=== PATIENT | female | born 1960 | race Caucasian/White ===

== ENCOUNTER → 2023-04-14 | Outpatient (CLI) | payer BC ==
--- NOTE | 2023-04-17 08:10 | MM ---
Reason for Exam: Screening (asymptomatic). Patient History: Menarche at age 15. First Full-Term at age 18. Postmenopausal. Patient has history of breast feeding. Risk Values: Evie 5 year model risk: 1.0%. NCI Lifetime model risk: 4.4%. Prior Study Comparison: No prior studies available for comparison. Tissue Density: The breast tissue is heterogeneously dense. This may lower the sensitivity of mammography. Findings: Analyzed By CAD. There is no suspicious group of microcalcifications or new suspicious mass. Overall Assessment: Negative, BI-RAD 1 Management: Screening Mammogram of both breasts in [address] [facility] will attempt to contact patient to return for supplemental views and ultrasound if indicated. Patient should continue monthly self-breast exams. A clinical breast exam by your physician is recommended on an annual basis. This exam should not preclude additional follow-up of suspicious palpable abnormalities. Note on Evie scores and lifetime risk: 1. A Evie score greater than 3% is considered moderate risk. If this is the case, consider specialist referral to assess eligibility for a risk reducing agent. 2. If overall lifetime risk for the development of breast cancer is 20% or higher, the patient may qualify for future screening with alternating mammogram and breast MRI. Electronically signed and approved by: Sincere Mares DO
== END | disposition home or self-care (01) ==
LOC: RADMAMWWP 07:21
PROVIDERS: ATTEND Family Medicine
DX: Z12.31 Encounter for screening mammogram for malignant neoplasm of breast (principal); Z78.0 Asymptomatic menopausal state
CPT/HCPCS: 77063; 77067

== ENCOUNTER → 2024-07-17 | Outpatient (CLI) | payer BC ==
--- NOTE | 2024-07-17 08:57 | MM ---
Reason for Exam: Screening (asymptomatic). Last mammogram was performed 1 year(s) and 3 month(s) ago. Patient History: Menarche at age 15. First Full-Term at age 18. Postmenopausal. Patient has history of breast feeding. Risk Values: Evie 5 year model risk: 1.1%. NCI Lifetime model risk: 4.3%. Prior Study Comparison: 04/14/2023 Bilateral MG 3D screening mammo w/cad, [facility]. Tissue Density: The breasts are heterogeneously dense, which may obscure small masses. Findings: Analyzed By CAD. Possible 2 areas of obscured distortion 1:00 left breast anteriorly and at a middle depth. The technologist indicates left breast lump at 12:00 for 2 days reported by the patient. Further evaluation recommended. Otherwise, no significant change. Overall Assessment: Incomplete: need additional imaging evaluation, BI-RAD 0 Management: Special View Mammogram of the left breast. Diagnostic Breast Ultrasound of the left breast. The patient reports a palpable lump. [facility] will attempt to contact patient to return for supplemental views and ultrasound if indicated. [facility], , 07/17/2024 8:53 AM. Electronically signed and approved by: Monet Wagner M.D. Radiologist
== END | disposition home or self-care (01) ==
LOC: RADMAMWWP 06:58
PROVIDERS: ATTEND Family Medicine
DX: Z12.31 Encounter for screening mammogram for malignant neoplasm of breast (principal); R92.333 Mammographic heterogeneous density, bilateral breasts; Z78.0 Asymptomatic menopausal state
CPT/HCPCS: 77063; 77067

== ENCOUNTER → 2024-07-19 | Outpatient (CLI) | payer BC ==
--- NOTE | 2024-07-19 15:25 | MM ---
Reason for Exam: Clinical finding. Last screening mammogram was performed less than 1 month ago. Patient History: Menarche at age 15. First Full-Term at age 18. Postmenopausal. Patient has history of breast feeding. Risk Values: Evie 5 year model risk: 1.1%. NCI Lifetime model risk: 4.3%. Prior Study Comparison: 04/14/2023 Bilateral MG 3D screening mammo w/cad, [facility]. 07/17/2024 Bilateral MG 3D screening mammo w/cad, [facility]. Tissue Density: Left: The breasts are heterogeneously dense, which may obscure small masses. Findings: Analyzed By CAD. The 2 questionable areas of distortion in the upper inner aspect appear to incompletely disperses. However, not clearly seen on the lateral or spot 3-D MLO views. Further ultrasound evaluation recommended. Overall Assessment: Incomplete: need additional imaging evaluation, BI-RAD 0 Management: Diagnostic Breast Ultrasound of the left breast. [facility], , 07/19/2024 3:22 PM. Electronically signed and approved by: Monet Wagner M.D. Radiologist
--- NOTE | 2024-07-19 15:28 | USB ---
Reason for Exam: Clinical finding. Patient History: Menarche at age 15. First Full-Term at age 18. Postmenopausal. Patient has history of breast feeding. Risk Values: Evie 5 year model risk: 1.1%. NCI Lifetime model risk: 4.3%. Technique: Method: Whole Breast Handheld. Doppler: Color. Patient Position: Supine. Prior Study Comparison: 04/14/2023 Bilateral MG 3D screening mammo w/cad, [facility]. 07/17/2024 Bilateral MG 3D screening mammo w/cad, [facility]. Findings: The whole breast of the left breast, the axilla of the left breast and the retroareolar of the left breast were scanned. Very dense heterogeneous tissue is present 12:00 to 1:00. The patient's palpable site is at 1:00, 8 cm from the nipple and seems to correspond to a 5 mm cyst. Otherwise, no solid or cystic lesion or axillary adenopathy. Overall Assessment: Suspicious, BI-RAD 4 Management: Stereotactic Core Biopsy of the left breast. Possible 2 areas of distortion in the upper outer quadrant. Ultrasound shows very dense heterogeneous tissue here. Results were given to the patient verbally at the time of exam. [facility], , 07/19/2024 3:25 PM. Electronically signed and approved by: Monet Wagner M.D. Radiologist
== END | disposition home or self-care (01) ==
LOC: RADMAMWWP 14:44
PROVIDERS: ATTEND Family Medicine
DX: R92.8 Other abnormal and inconclusive findings on diagnostic imaging of breast (principal); R92.333 Mammographic heterogeneous density, bilateral breasts; Z78.0 Asymptomatic menopausal state
CPT/HCPCS: 77061; 77065

== ENCOUNTER → 2024-08-08 | Outpatient (CLI) | payer BC ==
[2024-08-08 07:55] VITALS: BP 120/78; PULSE 56; RESP 16; TEMP 97.8
--- NOTE | 2024-08-08 09:33 | P.PCN ---
Date of Procedure: 08/08/24 Preoperative Diagnosis: Radiographic abnormality left breast Postoperative Diagnosis: Same Procedure(s) Performed: Left breast stereotactic core biopsy Anesthesia: local Surgeon: Nichole Steinberg Pathology: other (Breast tissue/no microcalcifications this was a density) Condition: stable Disposition: same day Indications for Procedure: Stellate lesion left breast upper outer quadrant Operative Findings: Breast tissue Description of Procedure: The patient is a 63-year-old female who on radiograph was noted to have a stellate lesion in the upper outer quadrant of the left breast. This was not seen on ultrasound. Stereotactic core biopsy was recommended. The patient was taken to the stereotactic core biopsy room. She was positioned in the upright chair. A CC from above approach was utilized. The lesion of concern was identified. The lesion was targeted. The breast was prepped using chlorhexidine. 20 cc of 1% lidocaine was used to anesthetize the area of concern. A 9 gauge vacuum-assisted core rotating biopsy needle was driven to the correct coordinates. A prefire film was obtained. The needle was noted to be in the correct location. The needle was fired. A post fire film was obtained. The needle was noted to be in the correct location. 17 core biopsy specimens were obtained. A secure faisal Top-Hat clip was deployed. Post radiograph the clip appeared to be in the correct location, there was some question as to the fact that it might be slightly posterior to the lesion. The specimen was sent to pathology. The patient will follow-up with Dr. Watkins in 1 week. Lesion is felt to be suspicious, if this is benign unless it is a radial scar we may recommend needle localization and excision.
== END ==
LOC: WWCWWP 07:00
PROVIDERS: ATTEND Surgery
DX: R92.8 Other abnormal and inconclusive findings on diagnostic imaging of breast (principal); Z88.6 Allergy status to analgesic agent

== ENCOUNTER → 2024-08-08 | Day surgery (SDC) | payer BC ==
[~2024-08-08] MED LIST: ALPRAZolam 0.25 MG TAB PO PRN; ALPRAZolam 0.5 MG TAB PO PRN
[2024-08-08 07:36] VITALS: PULSE 56
--- NOTE | 2024-08-08 08:07 | P.GSCN ---
History of Present Illness Consult date: 08/08/24 Reason for Consult: Abnormal left breast mammogram Requesting physician: John Leyva History of present illness: Lauren is a 63-year-old female seen in consultation for Dr. Leyva regarding radiographic abnormality in the left breast. She underwent a bilateral screening mammogram on 07 17 24. She was noted to have heterogeneously dense breast with a possible 2 areas of obscured distortion at 1:00 left breast anteriorly and at middle depth. The patient stated that she had felt a lump in her left breast for 2 days. Additional views of the left breast were recommended no lesions of concern were noted in the right breast. The patient on 07 19 24 underwent a left breast diagnostic mammogram. This revealed 2 questionable areas of distortion in the upper inner aspect which appeared to be incompletely dispersed however they were not clearly seen on the lateral view. Ultrasound evaluation was recommended. Ultrasound was performed on the same date very dense heterogeneous tissue was present 12-1 o'clock. The patient's palpable site was noted to be at 1:00 8 cm from the nipple and seem to correspond to a 5 mm cyst. Otherwise no cystic lesions were noted no axillary adenopathy. This was felt to be suspicious BI-RADS 4. Stereotactic core biopsy of the left breast possible 2 areas of distortion in the upper outer quadrant. She has felt some slight increased nodularity in the left breast in the 12 o'clock position for approximately 2 weeks now. Needle biopsy of the right breast approximately 20 years ago which was benign. She has not had any other surgery on her breast. She is not complaining of any recent trauma or infection in the breast. She is not complaining of any nipple discharge or skin changes of her breast. Caffeine: 1 cup/day nicotine: none/never smoker chocolate: none BCP: used for about two years as a teen hormones: none Family History: none for cancer Hormonal History: menarche: 14 , breast fed: yes, age at first : 21 menopause: 48 Surgical history: 2 C-sections Medical History: none Social HIsgtory: nicotine: none alcohol: weekends occasional drugs: none Review of Systems - Constitutional Denies fever, Denies weight loss - EENT Eyes: denies blurred vision Ears: deny: decreased hearing, tinnitus Ears, nose, mouth and throat: Denies dysphagia - Breasts bilateral: as per HPI - Cardiovascular Denies chest pain, Denies shortness of breath - Respiratory Denies cough, Denies 7 - Gastrointestinal Reports as per HPI - Genitourinary Genitourinary: Denies dysuria, Denies hematuria Menstruation: Reports as per HPI - Musculoskeletal Reports as per HPI - Integumentary Denies rash, Denies unusual bruising - Neurological Denies headaches, Denies syncope - Psychiatric Reports as per HPI - Endocrine Reports as per HPI - Hematologic/Lymphatic Denies easy bleeding, Denies easy bruising - Allergic/Immunologic Allergic/Immunologic Comment(s): albuteral inhaler for allergies is needed Reports as per HPI, Reports seasonal allergies Past Medical History Past Medical History: No Reported History History of Any Multi-Drug Resistant Organisms: None Reported Past Surgical History: Section Additional Past Surgical History / Comment(s): x2 Past Anesthesia/Blood Transfusion Reactions: No Reported Reaction Smoking Status: Never smoker Medications and Allergies Home Medications Medication Instructions Recorded Confirmed Type No Known Home Medications 07/24/24 07/24/24 History Allergies Allergy/AdvReac Type Severity Reaction Status Date / Time aspirin Allergy Rash/Hives Verified 07/24/24 14:16 Surgical - Exam Vital Signs Temp Pulse Resp BP 97.5 F L 56 L 16 120/78 08/08/24 07:32 08/08/24 07:32 08/08/24 07:32 08/08/24 07:32 - General no distress - Eyes normal ocular movement - Neck trachea midline - Respiratory normal respiratory effort, clear to auscultation - Cardiovascular Rhythm: regular Heart Sounds: normal: S1, S2 - Abdomen Abdomen: soft, non tender, no guarding, no rigid, no rebound - Integumentary normal turgor - Musculoskeletal normal gait - Psychiatric oriented to time, oriented to person, oriented to place, speech is normal, memory intact Breast Exam: BRA: 38C Inspection: Bilateral grade 2/3 ptosis Palpation: Right breast: Multi positional exam fibrocystic changes, no dominant masses or nodules of concern Right axilla: No adenopathy of concern Left breast: Multi positional exam increased fullness upper outer quadrant no discrete dominant masses or nodules of concern Left axilla: No adenopathy of concern Results Review of as well as 07 19 24, no lesions of concern right breast however reveals some spiculated density in the upper outer quadrant area of the left breast ultrasound performed on 07 19 24 did not reveal any specific lesions of concern a questionable 5 mm cystic lesion was identified Assessment and Plan Assessment: Impression: Radiographic abnormality left breast upper outer quadrant region Dense breast Fibrocystic breast changes Plan: Stereotactic core biopsy left breast Risk and benefits of the procedure discussed with the patient. Risk include but are not limited to bleeding, infection, reaction to the anesthetic. If adequate tissue acquisition is not obtained then further tissue acquisition may be necessary. The patient understands and wishes to proceed. Upon review of the radiographs there were a question of 2 areas of concern which will be further reviewed with radiology prior to the biopsy.
[2024-08-08 09:12] VITALS: BP 119/66; RESP 14; TEMP 98.1
--- NOTE | 2024-08-12 07:26 | MM ---
Date of Procedure: 08/08/24 Preoperative Diagnosis: Radiographic abnormality left breast Postoperative Diagnosis: Same Procedure(s) Performed: Left breast stereotactic core biopsy Anesthesia: local Surgeon: Nichole Steinberg Pathology: other (Breast tissue/no microcalcifications this was a density) Condition: stable Disposition: same day Indications for Procedure: Stellate lesion left breast upper outer quadrant Operative Findings: Breast tissue Description of Procedure: The patient is a 63-year-old female who on radiograph was noted to have a stellate lesion in the upper outer quadrant of the left breast. This was not seen on ultrasound. Stereotactic core biopsy was recommended. The patient was taken to the stereotactic core biopsy room. She was positioned in the upright chair. A CC from above approach was utilized. The lesion of concern was identified. The lesion was targeted. The breast was prepped using chlorhexidine. 20 cc of 1% lidocaine was used to anesthetize the area of concern. A 9 gauge vacuum-assisted core rotating biopsy needle was driven to the correct coordinates. A prefire film was obtained. The needle was noted to be in the correct location. The needle was fired. A post fire film was obtained. The needle was noted to be in the correct location. 17 core biopsy specimens were obtained. A secure faisal Top-Hat clip was deployed. Post radiograph the clip appeared to be in the correct location, there was some question as to the fact that it might be slightly posterior to the lesion. The specimen was sent to pathology. The patient will follow-up with Dr. Watkins in 1 week. Lesion is felt to be suspicious, if this is benign unless it is a radial scar we may recommend needle localization and excision. [facility]OSPITALGhazala
== END ==
LOC: RADMAMWWP 06:58
PROVIDERS: ATTEND Surgery
DX: C50.912 Malignant neoplasm of unspecified site of left female breast (principal); R92.8 Other abnormal and inconclusive findings on diagnostic imaging of breast
CPT/HCPCS: 88305; 88342; 88341; 19081; A4648; J2003

== ENCOUNTER → 2024-08-22 | Outpatient (CLI) | payer BC ==
[2024-08-22 11:18] VITALS: BP 112/62; PULSE 62; RESP 17; TEMP 97.7
--- NOTE | 2024-08-22 11:32 | P.PN ---
Subjective Progress Note Date: 08/22/24 Principal diagnosis: invasive lobular cancer left breast History of Present Illness Consult date: 08-22-24 Reason for Consult: Abnormal left breast mammogram Requesting physician: John Leyva History of present illness: Lauren is a 63-year-old female seen in consultation for Dr. Leyva regarding radiographic abnormality in the left breast. She underwent a bilateral screening mammogram on 07 17 24. She was noted to have heterogeneously dense breast with a possible 2 areas of obscured distortion at 1:00 left breast anteriorly and at middle depth. The patient stated that she had felt a lump in her left breast for 2 days. Additional views of the left breast were recommended no lesions of concern were noted in the right breast. The patient on 07 19 24 underwent a left breast diagnostic mammogram. This revealed 2 questionable areas of distortion in the upper inner aspect which appeared to be incompletely dispersed however they were not clearly seen on the lateral view. Ultrasound evaluation was recommended. Ultrasound was performed on the same date very dense heterogeneous tissue was present 12-1 o'clock. The patient's palpable site was noted to be at 1:00 8 cm from the nipple and seem to correspond to a 5 mm cyst. Otherwise no cystic lesions were noted no axillary adenopathy. This was felt to be suspicious BI-RADS 4. Stereotactic core biopsy of the left breast possible 2 areas of distortion in the upper outer quadrant. She has felt some slight increased nodularity in the left breast in the 12 o'clock position for approximately 2 weeks now. Needle biopsy of the right breast approximately 20 years ago which was benign. She has not had any other surgery on her breast. She is not complaining of any recent trauma or infection in the breast. She is not complaining of any nipple discharge or skin changes of her breast. second area on the left breast compressed out, this was reviewed with Dr. Vaughan on 08-08-24. Pathology left breast invasive lobular cancer, ER+Pr+Her2?, G2 presented at tumor board on 08-20-24: recommend MRI of the breast Caffeine: 1 cup/day nicotine: none/never smoker chocolate: none BCP: used for about two years as a teen hormones: none Family History: none for cancer Hormonal History: menarche: 14 , breast fed: yes, age at first : 21 menopause: 48 Surgical history: 2 C-sections Medical History: none Social HIsgtory: nicotine: none alcohol: weekends occasional drugs: none Review of Systems - Constitutional Denies fever, Denies weight loss - EENT Eyes: denies blurred vision Ears: deny: decreased hearing, tinnitus Ears, nose, mouth and throat: Denies dysphagia - Breasts bilateral: as per HPI - Cardiovascular Denies chest pain, Denies shortness of breath - Respiratory Denies cough - Gastrointestinal Reports as per HPI - Genitourinary Genitourinary: Denies dysuria, Denies hematuria Menstruation: Reports as per HPI - Musculoskeletal Reports as per HPI - Integumentary Denies rash, Denies unusual bruising - Neurological Denies headaches, Denies syncope - Psychiatric Reports as per HPI - Endocrine Reports as per HPI - Hematologic/Lymphatic Denies easy bleeding, Denies easy bruising - Allergic/Immunologic Allergic/Immunologic Comment(s): albuteral inhaler for allergies is needed Reports as per HPI, Reports seasonal allergies Past Medical History Past Medical History: No Reported History History of Any Multi-Drug Resistant Organisms: None Reported Past Surgical History: Section Additional Past Surgical History / Comment(s): x2 Past Anesthesia/Blood Transfusion Reactions: No Reported Reaction Smoking Status: Never smoker Medications and Allergies Home Medications Medication Instructions Recorded Confirmed Type No Known Home Medications 07/24/24 07/24/24 History Allergies Allergy/AdvReac Type Severity Reaction Status Date / Time aspirin Allergy Rash/Hives Verified 07/24/24 14:16 Objective - Vital Signs Vital signs: Vital Signs Temp 97.7 F 08/22/24 11:16 Pulse 62 08/22/24 11:16 Resp 17 08/22/24 11:16 BP 112/62 08/22/24 11:16 Pulse Ox 96 08/22/24 11:16 FiO2 Intake & Output 08/21/24 08/22/24 08/22/24 18:59 06:59 18:59 Weight 63.503 kg - Constitutional General appearance: Present: cooperative - EENT Eyes: Present: EOMI ENT: Present: hearing grossly normal - Neck Neck: Present: normal ROM - Respiratory Respiratory: bilateral: CTA - Cardiovascular Heart sounds: normal: S1, S2 - Integumentary Integumentary: Present: normal turgor - Musculoskeletal Musculoskeletal: Present: gait normal - Psychiatric Psychiatric: Present: A&O x's 3, appropriate affect, intact judgment & insight - Additional findings Additional findings: Breast Exam: BRA: 38C Inspection: Bilateral grade 2/3 ptosis Palpation: Right breast: Multi positional exam fibrocystic changes, no dominant masses or nodules of concern Right axilla: No adenopathy of concern Left breast: Multi positional exam increased fullness upper outer quadrant no discrete dominant masses or nodules of concern; post stero biopsy changes no hematoma or infection Left axilla: No adenopathy of concern Assessment and Plan Assessment: Impression: Radiographic abnormality left breast upper outer quadrant region/ biopsy proven invasive lobular cancer Dense breast Fibrocystic breast changes presented at tumor board on 08-20-24 Plan: MRI of breast appointment with radiation oncology await HEr2 status probable left breast needle localization lumpectomy, possible oncoplastic tissue transfer, left sentinel node injection, left sentinel node biopsy, possible left axillary node dissection CC; Dr. Leyva
== END ==
LOC: WWCWWP 10:59
PROVIDERS: ATTEND Surgery
DX: C50.412 Malignant neoplasm of upper-outer quadrant of left female breast (principal); N60.19 Diffuse cystic mastopathy of unspecified breast; R92.30 Dense breasts, unspecified; Z88.6 Allergy status to analgesic agent

== ENCOUNTER → 2024-09-11 | Outpatient (CLI) | payer BC ==
--- NOTE | 2024-09-20 08:21 | MR ---
EXAM DATE: 09/11/2024 EXAM DESCRIPTION: MRI-Breast Bilat (W/WO Contrast) INDICATION: Recent diagnosis of left breast invasive lobular carcinoma and LCIS by stereotactic biopsy. Pretreatment staging. COMPARISON: PRIOR MRIs: None available. Correlation to mammograms: 04/14/2023, 07/17/2024, 07/19/2024. Correlation to ultrasound: 07/19/2024. CONTRAST: 5.5 cc Gadavist IV gadolinium contrast TECHNIQUE: Study was performed at [facility] with Radiologic interpretation by [facility] Multiplanar multisequence MR imaging of both breasts was performed with a dedicated breast coil. Images were obtained before and after administration of IV gadolinium, using the standard breast mass protocol. Computer aided detection was utilized for interpretation. FINDINGS: LMP: Postmenopausal General breast composition: The breast is heterogeneously dense Background parenchymal enhancement: Mild RIGHT BREAST: The T2 weighted series shows no areas of abnormal signal intensity. Review of the dynamic series shows no early or abnormal enhancement. LEFT BREAST: There are multiple masses in the upper-outer left breast the largest of which measures 1.5 x 0.9 cm at 1 o'clock, 6 cm from the nipple. Smaller adjacent masses extend to 12 o'clock at site of biopsy site marker. This area estimates 2.6 x 1.9 cm. There is diffuse non mass enhancement that extends ventrally in the superior left breast for total area of 6.3 x 4.2 x 2.6 cm. Abnormal enhancement extends within 1.5 cm of the nipple without discrete extension into the nipple. LYMPH NODES: There are at least 5 asymmetrically prominent left axillary lymph nodes. No evidence of internal mammary adenopathy. IMPRESSION: RIGHT BREAST: No MR evidence of malignancy. LEFT BREAST: Known malignancy in the left breast at 12 o'clock with multiple additional masses and non mass enhancement in the superior breast for total area of suspected involvement estimating 6.3 x 4.2 x 2.6 cm within 1.5 cm of the nipple. If pathologic confirmation is clinically necessitated, stereotactic biopsy more anteriorly could be attempted versus MRI guided biopsy. Multiple prominent left axillary lymph nodes. If clinically necessitated, targeted ultrasound with possible biopsy could be performed. OVERALL ASSESSMENT -- BI-RADS 6: Known Biopsy proven Malignancy MTDD
== END | disposition home or self-care (01) ==
LOC: RADMRIMAIN 06:43
PROVIDERS: ATTEND Surgery
DX: C50.812 Malignant neoplasm of overlapping sites of left female breast (principal)
CPT/HCPCS: 77049; A9585

== ENCOUNTER → 2024-09-26 | Outpatient (CLI) | payer BC, MEDICARE ==
[2024-09-26 15:03] VITALS: BP 112/80; PULSE 77; RESP 17; TEMP 97.6
--- NOTE | 2024-09-26 15:51 | P.PN ---
Subjective Progress Note Date: 09/26/24 : Subjective Progress Note Date: 08/22/24 Principal diagnosis: invasive lobular cancer left breast History of Present Illness Consult date: 08-22-24 Reason for Consult: Abnormal left breast mammogram Requesting physician: John Leyva History of present illness: Lauren is a 63-year-old female seen in consultation for Dr. Leyva regarding radiographic abnormality in the left breast. She underwent a bilateral screening mammogram on 07 17 24. She was noted to have heterogeneously dense breast with a possible 2 areas of obscured distortion at 1:00 left breast anteriorly and at middle depth. The patient stated that she had felt a lump in her left breast for 2 days. Additional views of the left breast were recommended no lesions of concern were noted in the right breast. The patient on 07 19 24 underwent a left breast diagnostic mammogram. This revealed 2 questionable areas of distortion in the upper inner aspect which appeared to be incompletely dispersed however they were not clearly seen on the lateral view. Ultrasound evaluation was recommended. Ultrasound was performed on the same date very dense heterogeneous tissue was present 12-1 o'clock. The patient's palpable site was noted to be at 1:00 8 cm from the nipple and seem to correspond to a 5 mm cyst. Otherwise no cystic lesions were noted no axillary adenopathy. This was felt to be suspicious BI-RADS 4. Stereotactic core biopsy of the left breast possible 2 areas of distortion in the upper outer quadrant. She has felt some slight increased nodularity in the left breast in the 12 o'clock position for approximately 2 weeks now. Needle biopsy of the right breast approximately 20 years ago which was benign. She has not had any other surgery on her breast. She is not complaining of any recent trauma or infection in the breast. She is not complaining of any nipple discharge or skin changes of her breast. second area on the left breast compressed out, this was reviewed with Dr. Vaughan on 08-08-24. Pathology left breast invasive lobular cancer, ER+Pr+Her2-, G2 presented at tumor board on 08-20-24: recommend MRI of the breast 09-26-24 MRI 09-11-24 of breast: area measures 6.5 by 4.2 cm in size left breast, right breast no lesions appointment with radiation oncology/ done on 09-19-24 Her2 - note radiation oncology 09-19-[address] Rodrigez Caffeine: 1 cup/day nicotine: none/never smoker chocolate: none BCP: used for about two years as a teen hormones: none Family History: none for cancer Hormonal History: menarche: 14 , breast fed: yes, age at first : 21 menopause: 48 Surgical history: 2 C-sections Medical History: none Social HIsgtory: nicotine: none alcohol: weekends occasional drugs: none Review of Systems - Constitutional Denies fever, Denies weight loss - EENT Eyes: denies blurred vision Ears: deny: decreased hearing, tinnitus Ears, nose, mouth and throat: Denies dysphagia - Breasts bilateral: as per HPI - Cardiovascular Denies chest pain, Denies shortness of breath - Respiratory Denies cough - Gastrointestinal Reports as per HPI - Genitourinary Genitourinary: Denies dysuria, Denies hematuria Menstruation: Reports as per HPI - Musculoskeletal Reports as per HPI - Integumentary Denies rash, Denies unusual bruising - Neurological Denies headaches, Denies syncope - Psychiatric Reports as per HPI - Endocrine Reports as per HPI - Hematologic/Lymphatic Denies easy bleeding, Denies easy bruising - Allergic/Immunologic Allergic/Immunologic Comment(s): albuteral inhaler for allergies is needed Reports as per HPI, Reports seasonal allergies Past Medical History Past Medical History: No Reported History History of Any Multi-Drug Resistant Organisms: None Reported Past Surgical History: Section Additional Past Surgical History / Comment(s): x2 Past Anesthesia/Blood Transfusion Reactions: No Reported Reaction Smoking Status: Never smoker Medications and Allergies Home Medications Medication Instructions Recorded Confirmed Type No Known Home Medications 07/24/24 07/24/24 History Allergies Allergy/AdvReac Type Severity Reaction Status Date / Time aspirin Allergy Rash/Hives Verified 07/24/24 14:16 Objective - Vital Signs Vital signs: Vital Signs Temp 97.6 F 09/26/24 15:00 Pulse 77 09/26/24 15:00 Resp 17 09/26/24 15:00 BP 112/80 09/26/24 15:00 Pulse Ox 93 L 09/26/24 15:00 FiO2 Intake & Output 09/25/24 09/26/24 09/26/24 18:59 06:59 18:59 Weight 62.596 kg - Constitutional General appearance: Present: cooperative - EENT Eyes: Present: EOMI ENT: Present: hearing grossly normal - Neck Neck: Present: normal ROM - Respiratory Respiratory: bilateral: CTA - Cardiovascular Rhythm: regular Heart sounds: normal: S1, S2 - Integumentary Integumentary: Present: normal turgor - Musculoskeletal Musculoskeletal: Present: gait normal - Psychiatric Psychiatric: Present: A&O x's 3, appropriate affect, intact judgment & insight - Additional findings Additional findings: Breast Exam: BRA: 38C Inspection: Bilateral grade 2/3 ptosis Palpation: Right breast: Multi positional exam fibrocystic changes, no dominant masses or nodules of concern Right axilla: No adenopathy of concern Left breast: Multi positional exam increased fullness upper outer quadrant no discrete dominant masses or nodules of concern; post stero biopsy changes no hematoma or infection; area of fullness in the upper outer quadrant is approximately 6 x 4 cm in size and will correspond to what is seen on the MRI of the left breast Left axilla: No adenopathy of concern Assessment and Plan Assessment: Impression: Radiographic abnormality left breast upper outer quadrant region/ biopsy proven invasive lobular cancer Dense breast Fibrocystic breast changes presented at tumor board on 08-20-24 MRI of breast: area measures 6.5 by 4.2 cm in size left breast, right breast no lesions appointment with radiation oncology/ done on 09-19-24 Her2(-) Plan: Appointment medical oncology tomorrow/probable neoadjuvant therapy Patient will call us tomorrow to let us know if she would like to proceed with surgery or have neoadjuvant therapy to try to shrink the tumor if she decides for surgery we would most likely recommend a mastectomy if she is going top have neoadjuvant treatment I will see her again in 2 months time CC; Dr. Leyva
== END ==
LOC: WWCWWP 14:33
PROVIDERS: ATTEND Surgery
DX: N60.11 Diffuse cystic mastopathy of right breast (principal); C50.412 Malignant neoplasm of upper-outer quadrant of left female breast; Z88.6 Allergy status to analgesic agent

== ENCOUNTER → 2024-10-01 | Outpatient (CLI) | payer MEDICARE ==
--- NOTE | 2024-10-01 11:58 | USB ---
Patient History: Menarche at age 15. First Full-Term at age 18. Postmenopausal. Patient has history of breast feeding. Breast cancer, left, age 63. 08/08/2024, Malignant MG stereo VAD BX LT on the left side. Technique: Method: Targeted. Prior Study Comparison: 04/14/2023 Bilateral MG 3D screening mammo w/cad, [facility]. 07/17/2024 Bilateral MG 3D screening mammo w/cad, [facility]. 07/19/2024 Left MG 3D work up w/cad LT, [facility] WITH [facility]. Findings: The axilla of the left breast was scanned. Technique utilized:US breast axilla LT Image; Ultrasound imaging of: Left axilla. No evidence for organizing fluid collection or mass. Normal lymph nodes in the axilla. Overall Assessment: Benign, BI-RAD 2 Management: Screening Mammogram of both breasts in 1 year. A clinical breast exam by your physician is recommended on an annual basis and results should be correlated with mammographic findings. This exam should not preclude additional follow-up of suspicious palpable abnormalities. Results were given to the patient verbally at the time of exam. [facility], , 10/01/2024 11:55 AM. Electronically signed and approved by: Sincere Mares DO
== END | disposition home or self-care (01) ==
LOC: RADUSWWP 10:46
PROVIDERS: ATTEND Internal Medicine Hematology & Oncology
DX: R59.0 Localized enlarged lymph nodes (principal); Z78.0 Asymptomatic menopausal state; Z85.3 Personal history of malignant neoplasm of breast

== ENCOUNTER → 2024-10-03 | Day surgery (SDC) | payer MEDICARE ==
--- NOTE | 2024-10-05 17:30 | PE ---
EXAMINATION TYPE: PET CT fusion skull to thigh DATE OF EXAM: 10/03/2024 CLINICAL INDICATION:Female, 64 years old with history of R59.0 LOCALIZED ENLARGED LYMPH NODES; histor y of left breast cancer TECHNIQUE: Following the intravenous administration of 12.14 mCi of F-18 FDG, whole body images are performed from the skull base to the midthigh. Images are reviewed on the computer in the coronal, axial, and sagittal planes. Reconstructed rotating images are created on independent workstation and reviewed on the computer. A non-contrast CT is performed in conjunction with the PET scan. Glucose level 95 mg/dL CT DLP: 573 mGycm, Automated exposure control for dose reduction was used. COMPARISON: CT None, PET/CT None, MRI: 09/11/2024, ultrasound: 10/01/2024, 07/19/2024 FINDINGS: Mediastinal SUV mean is 2.1. Hepatic parenchyma SUV mean is 2.4. SKULL BASE AND NECK: No suspicious radiotracer activity. CHEST, MEDIASTINUM, AND HILAR REGION: Subtle focal FDG activity within the left breast corresponding to known breast cancer. Demonstrates a maximum SUV of 2.8. No suspicious adenopathy. ABDOMEN AND PELVIS: No suspicious radiotracer activity. MUSCULOSKELETAL STRUCTURES: No suspicious radiotracer activity. OTHER CT: Bilateral lower lobe linear scarring and/or atelectasis. Mild atherosclerotic calcification of the aorta. Distal colonic diverticulosis without evidence for acute diverticulitis. IMPRESSION: Subtle focal radiotracer activity just above background within the left breast corresponding to known breast cancer. No suspicious radiotracer activity to suggest metastasis. [facility], , 10/05/2024 5:28 PM
== END ==
LOC: RADPROMAIN 17:10
PROVIDERS: ATTEND Internal Medicine Hematology & Oncology
DX: Z53.8 Procedure and treatment not carried out for other reasons (principal); R59.0 Localized enlarged lymph nodes; Z85.3 Personal history of malignant neoplasm of breast
CPT/HCPCS: 78815; A9552

== ENCOUNTER → 2024-10-11 | Day surgery (SDC) | payer BC, MEDICARE ==
[~2024-10-11] MED LIST changes: -ALPRAZolam 0.25 MG TAB PO PRN; -ALPRAZolam 0.5 MG TAB PO PRN; +LACTATED RINGERS 1,000 ML IV SCH; +LIDOCAINE 2% (PF) 20 MG/ML 5 ML VIAL ONE; +PROPOFOL 10 MG/ML 20 ML VIAL IV ONE
[2024-10-11] MEDS: IV FLUID CONTINUATION 1,000 ML IV ONE (13:32)
[2024-10-11 13:38] VITALS: TEMP 97.2
--- NOTE | 2024-10-11 15:01 | P.PCN ---
Date of Procedure: 10/11/24 Procedure(s) Performed: BRIEF HISTORY: Patient is a 64-year-old, pleasant, white female scheduled for an upper endoscopy as a part of evaluation of dysphagia to solids for the last 2 weeks duration. She has prior history of GERD and esophageal stricture for which she underwent EGD with dilation in 2018.. PROCEDURE PERFORMED: Esophagogastroduodenoscopy with biopsy and dilation. PREOPERATIVE DIAGNOSIS: Intermittent dysphagia to solids. IV sedation per anesthesia. PROCEDURE: After informed consent was obtained, the patient was brought into the endoscopy unit. IV sedation was administered by Anesthesia under continuous monitoring. Initially the Olympus GIF-140 video endoscope was inserted into the mouth. Esophagus intubated without any difficulty. It was gradually advanced into the stomach and duodenum and carefully examined. The bulb and the second part of the duodenum appeared normal. The scope at this time was withdrawn to the stomach, adequately insufflated with air, and upon careful examination, mucosa of the antrum, body, cardia and the fundus appeared normal. The scope was then withdrawn into the esophagus. Small hiatal hernia noted the GE junction was located at 39 cm from the incisors. The distal esophagus stricture identified and this was dilated using 12 and 13.5 mm TTS balloon for 30 seconds. Some brisk oozing was identified and hence further dilation was not performed. The oozing subsided. The mucosa of the mid and distal esophagus had thickened esophageal folds with superficial mucosal rings suspicious for eosinophilic esophagitis and multiple biopsies were done. There were no erosions or ulcerations seen and the patient tolerated the procedure well. IMPRESSION: 1. Distal esophageal stricture status post balloon dilation using 12 and 13.5 mm TTS balloon. 2. Thickened distal and mid esophageal folds with mucosal rings suspicious for eosinophilic esophagitis status post multiple biopsies. 3. Small hiatal hernia RECOMMENDATIONS: The findings of this examination were discussed with the patient as well as her family. She was advised to be on clear liquid diet. Start on omeprazole 20 mg daily and follow antireflux measures. Follow-up in the office in 4 weeks..
[2024-10-11 15:27] VITALS: RESP 16
[2024-10-11 15:31] VITALS: BP 96/58; PULSE 61
== END ==
LOC: ORWHC2ENDO 13:04
PROVIDERS: ATTEND Internal Medicine Gastroenterology
DX: K22.2 Esophageal obstruction (principal); K20.90 Esophagitis, unspecified without bleeding; D72.10 Eosinophilia, unspecified; K44.9 Diaphragmatic hernia without obstruction or gangrene; Z79.899 Other long term (current) drug therapy; Z87.19 Personal history of other diseases of the digestive system; Z85.3 Personal history of malignant neoplasm of breast; Z88.6 Allergy status to analgesic agent
CPT/HCPCS: 88305; 88312; 43239; 43249; J2704; J2003; C1726

== ENCOUNTER → 2024-12-05 | Outpatient (CLI) | payer MEDICARE ==
[2024-12-05 09:59] VITALS: BP 112/79; PULSE 66; RESP 16; TEMP 98.3
--- NOTE | 2024-12-05 10:02 | P.PN ---
Subjective Progress Note Date: 12/05/24 Principal diagnosis: left breast invasive lobular cancer : Subjective Progress Note Date: 12-05-24 Principal diagnosis: invasive lobular cancer left breast History of Present Illness Consult date: 08-22-24 Reason for Consult: Abnormal left breast mammogram Requesting physician: John Leyva History of present illness: Lauren is a 63-year-old female seen in consultation for Dr. Leyva regarding radiographic abnormality in the left breast. She underwent a bilateral screening mammogram on 07 17 24. She was noted to have heterogeneously dense breast with a possible 2 areas of obscured distortion at 1:00 left breast anteriorly and at middle depth. The patient stated that she had felt a lump in her left breast for 2 days. Additional views of the left breast were recommended no lesions of concern were noted in the right breast. The patient on 07 19 24 underwent a left breast diagnostic mammogram. This revealed 2 questionable areas of distortion in the upper inner aspect which appeared to be incompletely dispersed however they were not clearly seen on the lateral view. Ultrasound evaluation was recommended. Ultrasound was performed on the same date very dense heterogeneous tissue was present 12-1 o'clock. The patient's palpable site was noted to be at 1:00 8 cm from the nipple and seem to correspond to a 5 mm cyst. Otherwise no cystic lesions were noted no axillary adenopathy. This was felt to be suspicious BI-RADS 4. Stereotactic core biopsy of the left breast possible 2 areas of distortion in the upper outer quadrant. She has felt some slight increased nodularity in the left breast in the 12 o'clock position for approximately 2 weeks now. Needle biopsy of the right breast approximately 20 years ago which was benign. She has not had any other surgery on her breast. She is not complaining of any recent trauma or infection in the breast. She is not complaining of any nipple discharge or skin changes of her breast. second area on the left breast compressed out, this was reviewed with Dr. Vaughan on 08-08-24. Pathology left breast invasive lobular cancer, ER+Pr+Her2-, G2 presented at tumor board on 08-20-24: recommend MRI of the breast 09-26-24 MRI 09-11-24 of breast: area measures 6.5 by 4.2 cm in size left breast, right breast no lesions appointment with radiation oncology/ done on 09-19-24 Her2 - note radiation oncology 09-19-[address] Rodrigez 12-05-24 Lauren is a 63-year-old female seen in consultation for Dr. Leyva regarding radiographic abnormality in the left breast. She underwent a bilateral screening mammogram on 07 17 24. She was noted to have heterogeneously dense breast with a possible 2 areas of obscured distortion at 1:00 left breast anteriorly and at middle depth. The patient stated that she had felt a lump in her left breast for 2 days. Additional views of the left breast were recommended no lesions of concern were noted in the right breast. The patient on 07 19 24 underwent a left breast diagnostic mammogram. This revealed 2 questionable areas of distortion in the upper inner aspect which appeared to be incompletely dispersed however they were not clearly seen on the lateral view. Ultrasound evaluation was recommended. Ultrasound was performed on the same date very dense heterogeneous tissue was present 12-1 o'clock. The patient's palpable site was noted to be at 1:00 8 cm from the nipple and seem to correspond to a 5 mm cyst. Otherwise no cystic lesions were noted no axillary adenopathy. This was felt to be suspicious BI-RADS 4. Stereotactic core biopsy of the left breast possible 2 areas of distortion in the upper outer quadrant. MRI 09-11-24 of breast: area measures 6.5 by 4.2 cm in size left breast, right breast no lesions appointment with radiation oncology/ done on 09-19-24 Her2 - note 10-25-24 medical oncology reviewed: Patient had a PET scan done that showed uptake in the breast but no evidence of metastatic disease. She was referred for axillary node biopsy but no suspicious nodes were seen on ultrasound. Repeat review revealed one node of concern and a biopsy was done. She had a biopsy of 1 lymph node done on 10 17 24 which was negative. She was recommended to undergo neoadjuvant hormonal manipulation. She was started on anastrozole. Given the size of the tumor they felt it would be reasonable to consider a CDK 46 as part of her treatment regimen. Secondary to the fact that the patient did not need to interrupt her aromatase inhibitor for surgery she could potentially have surgery in the near future. note 09-19-24 radiation oncology: recommend radiation therapy after surgery At this time the patient would like to have a mastectomy on the left side, and close surveillance of the right side. Caffeine: 1 cup/day nicotine: none/never smoker chocolate: none BCP: used for about two years as a teen hormones: none Family History: none for cancer Hormonal History: menarche: 14 , breast fed: yes, age at first : 21 menopause: 48 Surgical history: 2 C-sections Medical History: none Social HIsgtory: nicotine: none alcohol: weekends occasional drugs: none Review of Systems - Constitutional Denies fever, Denies weight loss - EENT Eyes: denies blurred vision Ears: deny: decreased hearing, tinnitus Ears, nose, mouth and throat: Denies dysphagia - Breasts bilateral: as per HPI - Cardiovascular Denies chest pain, Denies shortness of breath - Respiratory Denies cough - Gastrointestinal Reports as per HPI - Genitourinary Genitourinary: Denies dysuria, Denies hematuria Menstruation: Reports as per HPI - Musculoskeletal Reports as per HPI - Integumentary Denies rash, Denies unusual bruising - Neurological Denies headaches, Denies syncope - Psychiatric Reports as per HPI - Endocrine Reports as per HPI - Hematologic/Lymphatic Denies easy bleeding, Denies easy bruising - Allergic/Immunologic Allergic/Immunologic Comment(s): albuteral inhaler for allergies is needed Reports as per HPI, Reports seasonal allergies Past Medical History Past Medical History: No Reported History History of Any Multi-Drug Resistant Organisms: None Reported Past Surgical History: Section Additional Past Surgical History / Comment(s): x2 Past Anesthesia/Blood Transfusion Reactions: No Reported Reaction Smoking Status: Never smoker Medications and Allergies Home Medications Medication Instructions Recorded Confirmed Type No Known Home Medications 07/24/24 07/24/24 History Allergies Allergy/AdvReac Type Severity Reaction Status Date / Time aspirin Allergy Rash/Hives Verified 07/24/24 14:16 Objective - Constitutional General appearance: Present: cooperative - EENT Eyes: Present: EOMI ENT: Present: hearing grossly normal - Neck Neck: Present: normal ROM - Respiratory Respiratory: bilateral: CTA - Cardiovascular Rhythm: regular Heart sounds: normal: S1, S2 - Integumentary Integumentary: Present: normal turgor - Musculoskeletal Musculoskeletal: Present: gait normal - Psychiatric Psychiatric: Present: A&O x's 3, appropriate affect, intact judgment & insight - Additional findings Additional findings: Breast Exam: BRA: 38C Inspection: Bilateral grade 2/3 ptosis Palpation: Right breast: Multi positional exam fibrocystic changes, no dominant masses or nodules of concern Right axilla: No adenopathy of concern Left breast: Multi positional exam increased fullness upper outer quadrant no discrete dominant masses or nodules of concern; post stero biopsy changes no hematoma or infection; area of fullness in the upper outer quadrant is approximately 6 x 4 cm in size and will correspond to what is seen on the MRI of the left breast Left axilla: No adenopathy of concern Assessment and Plan Assessment: Impression: Radiographic abnormality left breast upper outer quadrant region/ biopsy proven invasive lobular cancer Dense breast Fibrocystic breast changes presented at tumor board on 08-20-24 MRI of breast: area measures 6.5 by 4.2 cm in size left breast, right breast no lesions appointment with radiation oncology/ done on 09-19-24 Her2(-) appointment medical oncology 10-25-24 advise to proceed with surgery Plan: Plan: Left mastectomy, left sentinel node injection, left sentinel node biopsy, possible left axillary node dissection Risk and benefits of the procedure discussed with the patient. Risk include but are not limited to bleeding, infection, reaction to the anesthetic. If there were to be positive margins or sentinel node were to be positive further tissue acquisition may be necessary or radiation therapy may be recommended. The patient understands and wishes to proceed. Risk of axillary surgery include but are not limited to decrease sensation to the inner arm, lymphedema, potential injury to the thoracodorsal or long thoracic nerves with winged scapula. The patient understands and wishes to proceed. The patient will continue her aromatase inhibitor at this time. Breast reconstruction and she is not interested at this time. Consent: I have discussed the risks, benefits and alternative therapies for the above-mentioned procedure and for both sedation/analgesia as well as necessary blood product administration, if indicated, as they pertain to this patient. The patient has indicated understanding and acceptance of the risks and procedures discussed. Patient passed functional assessment: Arm abduction Patient education: Given by Kyra Duncan CC: Dr. Leyva
== END ==
LOC: WWCWWP 09:11
PROVIDERS: ATTEND Surgery
DX: C50.412 Malignant neoplasm of upper-outer quadrant of left female breast (principal); N60.19 Diffuse cystic mastopathy of unspecified breast; R92.30 Dense breasts, unspecified; Z88.6 Allergy status to analgesic agent

== ENCOUNTER 2024-12-10 06:35 | Day surgery (SDC) | payer MEDICARE ==
[2024-12-10] MEDS: IV FLUID CONTINUATION 1,000 ML IV ONE (07:22)
[2024-12-10] MEDS: LACTATED RINGERS 1,000 ML IV SCH (07:31)
[2024-12-10] MEDS: ACETAMINOPHEN TAB 500 MG TAB PO PRN (07:34)
[2024-12-10] MEDS: ONDANSETRON 4 MG/2 ML VIAL IVP ONE (07:34)
[2024-12-10] MEDS: DEXAMETHASONE SOD PHOSPHATE 4 MG/ML 1 ML VIAL IV ONE (07:35)
[2024-12-10] MEDS: fentaNYL (PF) 50 MCG/ML 2 ML AMP IVP ONE (08:25)
[2024-12-10] MEDS: MIDAZOLAM 2 MG/2 ML VIAL IV PRN (08:25)
[2024-12-10] MEDS: HEPARIN SODIUM,PORCINE 5,000 UNIT/ML 1 ML VIAL SQ PRN (08:32)
--- NOTE | 2024-12-10 08:32 | P.ANPRN ---
Procedure Note - Anesthesia - Nerve Block Performed Left Erector Spinae Single Time Out Performed: Yes Date of Procedure: 12/10/24 Procedure Start Time: Procedure Stop Time: Location of Patient: PreOp Indication: Acute Post-Operative Pain, Requested by Surgeon Sedation Type: Sedate with meaningful contact maintained Preparation: Sterile Prep Position: Prone Needle Types: Pajunk Needle Gauge: 21 Ultrasound used to visualize needle placement: Yes Ultrasound used to observe medication spread: Yes Injectate: 0.5% Ropivacaine (see comment for volume) (30 ml + 4 mg d examethasone) Blood Aspirated: No Pain Paresthesia on Injection Noted: No Resistance on Injection: Normal Image Stored and Saved: Yes Events: Uneventful and Well Tolerated
--- NOTE | 2024-12-10 09:22 | NM ---
EXAMINATION TYPE: NM sentinel node injection DATE OF EXAM: 12/10/2024 COMPARISON: NONE CLINICAL INDICATION: Female, 64 years old with history of LEFT BREAST CA; TECHNIQUE AND FINDINGS: The procedure of sentinel lymph node injection was explained to the patient. The benefits, alternatives, and risks were discussed. An informed consent was then obtained. Overlying skin is cleaned with sterile alcohol. Following this, 560 uCi Tc99m Tilmanocept was inject ed in the upper outer aspect of the left nipple intradermally. The patient tolerated the procedure well without any immediate complication. The patient was kept in the radiology department for short stay after the procedure and then taken to surgery for surgical p rocedure what is presumed intraoperative gamma probe will be used for sentinel lymph node detection. IMPRESSION: Left breast radiotracer injection for sentinel node localization as above. [facility], , 12/10/2024 9:19 AM
[2024-12-10] MEDS ORDERED: DEXAMETHASONE SOD PHOSPHATE 4 MG/ML 1 ML VIAL ONE (09:32)
[2024-12-10] MEDS ORDERED: LIDOCAINE 1% INJ 10MG/ML (20 ML MDV) ONE (09:32)
[2024-12-10] MEDS ORDERED: SUCCINYLCHOLINE CHLORIDE 200 MG/10 ML VIAL IV ONE (09:32)
[2024-12-10] MEDS ORDERED: LIDOCAINE 4% LTA KIT (4 ML) TOPICAL ONE (09:32)
[2024-12-10] MEDS ORDERED: fentaNYL (PF) 50 MCG/ML 2 ML AMP ONE (09:32)
[2024-12-10] MEDS ORDERED: ePHEDrine 50 MG/ML 1 ML VIAL ONE (09:32)
[2024-12-10] MEDS ORDERED: ROPIVACAINE 5 MG/ML 30 ML VIAL ONE (09:32)
[2024-12-10] MEDS ORDERED: PROPOFOL 10 MG/ML 20 ML VIAL IV ONE (09:32)
--- NOTE | 2024-12-10 09:54 | P.NAPBC ---
NAPBC Queries - [facility] Was patient's case review presented at [facility] tumor board? If no, comment.: Yes Was patient's pathology reviewed at [facility]? If no, comment.: Yes Was breast conservation surgery offered? If no, comment.: Yes (not a good candidate secondary to size and size of the breast) Was sentinel node biopsy offered? If no, comment.: Yes Was diagnosis confirmed by percutaneous core biopsy? If no, comment.: Yes Is patient mastectomy patient?: Yes Was a preop referral to reconstructive surgeon offered?: Yes Clinical Stage: [id number]+Pr+Her2-G2 left breast invasive lobular cancer
[2024-12-10] MEDS: METHYLENE BLUE 50 MG/10 ML VIAL INJ ONE (10:08)
[2024-12-10] MEDS: LACTATED RINGERS 1,000 ML IV ONE (11:28)
[2024-12-10] MEDS ORDERED: NALOXONE 0.4 MG/ML 1 ML VIAL IV PRN (11:33)
[2024-12-10] MEDS ORDERED: MELATONIN 3 MG TABLET PO PRN (11:33)
[2024-12-10] MEDS ORDERED: ONDANSETRON 4 MG/2 ML VIAL IVP PRN (11:33)
--- NOTE | 2024-12-10 11:33 | P.BCAON ---
Date of Procedure: 12/10/24 Preoperative Diagnosis: Left breast invasive lobular carcinoma; T3 N0 M0 ER/UT positive HER2 negative G2 Postoperative Diagnosis: Same Procedure(s) Performed: Left mastectomy with sentinel node mapping, sentinel node biopsy Anesthesia: CRISTÓBAL Surgeon: Nichole Steinberg Estimated Blood Loss (ml): 20 IV fluids (ml): 800 Pathology: other Condition: stable Disposition: floor Indications for Procedure: Left breast invasive lobular carcinoma Operative Findings: Dense breast tissue Description of Procedure: The patient was seen in the preoperative area by radiology and periareolar injection of radiotracer was performed. The patient was then brought to the operative suite. Following induction of anesthesia the neoprobe was used to interrogate the axilla. Radiotracer was identified in the axilla. Secondary to the fact that she had received some neoadjuvant hormone therapy a second tracer was placed. 8 cc of half-strength methylene blue were injected into the periareolar area. The breast was massaged for 5 minutes. Following this the left breast and axilla were prepped and draped in a sterile fashion. The superior flap was then developed. Dissection was performed in the subcutaneous plane between the breast and the skin. Dissection was performed down to the pectoralis muscle. An inferior flap was then formed in the same fashion. The breast was removed from medial to lateral being careful to maintain hemostasis using the LigaSure as well as the electrocautery device. Dissection was performed to the lateral axillary tissue. At the area of the axilla the neoprobe was used to identify a radioactive lymph node. The lymph node was resected. The 10-second count on the lymph node was 7332, the 10- second background count was 19. The lymph node which was radioactive was also noted to be blue. No other radioactive blue or palpable lymph nodes of concern were identified. Several nodes were removed in the axillary tail but these were not radioactive or blue. After we are sure that hemostasis was attained the wound was irrigated. Surgicel and powder form was placed. A #10 SOSA drain was placed and secured using a nylon suture. The subcutaneous tissues were closed using 3-0 Vicryl suture interrupted. This was followed by running 3-0 Vicryl subcutaneous suture. This was followed by a 4-0 Monocryl subcuticular suture. 10 cc of 1% lidocaine were injected into the incision. Surgical glue was placed. A sterile dressing was applied. The patient tolerated the procedure in stable condition. All instrument and sponge counts were correct at the end of the case. - Sentinal Node Biopsy Operation performed with curative intent: Yes Tracer(s) used in upfront surgery (non-neoadjuvant): N/A Tracer(s) used in the neoadjuvant setting: dye, radioactive tracer All nodes present at end of dye-filled channel removed: Yes All significantly radioactive nodes were removed: Yes All palpably suspicious nodes were removed: Yes Clipped positive nodes identified and removed: N/A
[2024-12-10] MEDS: HYDROmorphone 0.5 MG/0.5 ML SYRINGE IVP PRN (13:16)
--- NOTE | 2024-12-10 16:32 | P.CONS ---
History of Present Illness - Reason for Consult Consult date: 12/10/24 - History of Present Illness Patient is a 64-year-old female with past medical history of GERD, esophageal strictures with history of EGD dilation, left breast invasive lobular carcinoma T3 N0 M0 ER/MD positive H ER 2 negative who presented for elective left mastectomy with sentinel node mapping and biopsy that was performed on 12/10/2024. EBL 20 cc. On arrival patient was afebrile, heart rate in 50s, BP 117/72, satting well on room air. No lab work available for review. [facility] physicians consulted for medical management. Patient was seen examined at bedside, not in acute distress, accompanied by her . States that her pain is 3 out of 10 right now, denies any history of heart disease, lung disease, kidney issues, diabetes, thyroid disease. She does not have any shortness of breath, abdominal pain, lower extremity swelling, change in bowel habits Pertinent positives and negatives as discussed in HPI, a complete review of systems was performed and all other systems are negative. Patient seen and examined at bedside. Vital signs reviewed General: nontoxic, no distress, appears at stated age Derm: warm, dry, postop bandage Head: atraumatic, normocephalic, symmetric Eyes: EOMI, no lid lag, anicteric sclera, pupils equal round reactive to light ENT: Nose and ears atraumatic Neck: No thyromegaly, supple Mouth: no lip lesion, mucus membranes moist Cardiovascular: S1S2 reg, no murmur, no edema Lungs: clear to auscultation bilateral, no rhonchi, no rales, no wheeze, no accessory muscle use Abdominal: soft, nontender to palpation, no guarding, no appreciable organomegaly Ext: no gross muscle atrophy, muscle strength muscle strength 5 out of 5 in all 4 extremities, no contractures Neuro: CN II-XII grossly intact Psych: Alert, oriented, appropriate affect Assessment/Plan: GERD History of esophageal stricture status post dilation -Continue PPI with oMeprazole 20 daily left breast invasive lobular carcinoma T3 N0 M0 ER/MD positive H ER 2 negative s/p left mastectomy with sentinel node mapping and biopsy that was performed on 12/10/2024 - Your postop management, VTE prophylaxis pain regimen, bowel regimen - Morning CBC ordered by primary team Past Medical History Past Medical History: Cancer Additional Past Medical History / Comment(s): seasonal allergies, breast cancer History of Any Multi-Drug Resistant Organisms: None Reported Past Surgical History: Section Additional Past Surgical History / Comment(s): x2, egd Past Anesthesia/Blood Transfusion Reactions: No Reported Reaction Smoking Status: Never smoker Medications and Allergies Home Medications Medication Instructions Recorded Confirmed Type Albuterol Inhaler [Ventolin Hfa 2 puff INHALATION QID PRN 10/09/24 12/10/24 History Inhaler] Abemaciclib [Verzenio] 100 mg PO BID 12/05/24 12/10/24 History Anastrozole 1 mg PO DAILY 12/05/24 12/10/24 History Cholestyramine [Cholestyramine 4 gm PO DIRECTED PRN 12/05/24 12/10/24 History Light] Omeprazole 20 mg PO DAILY 12/05/24 12/10/24 History Ondansetron [Zofran] 4 mg PO DIRECTED PRN 12/05/24 12/10/24 History oxyCODONE HCL [OxyIR] 5 mg PO Q6H PRN 3 Days #10 tab 12/10/24 Rx Allergies Allergy/AdvReac Type Severity Reaction Status Date / Time aspirin Allergy Rash/Hives Verified 12/10/24 07:14 Physical Exam Vitals: Vital Signs Temp Pulse Pulse Resp BP BP Pulse Ox 12/10/24 14:30 74 18 115/59 95 12/10/24 14:15 71 18 112/62 95 12/10/24 14:00 71 18 119/61 119/61 95 12/10/24 13:45 68 18 125/66 96 12/10/24 13:30 68 18 117/61 100 12/10/24 13:15 70 12 120/74 100 12/10/24 13:00 70 12 126/65 100 12/10/24 12:45 70 12 123/75 100 12/10/24 12:30 71 12 113/66 100 12/10/24 12:25 96.8 F L 88 19 118/56 100 12/10/24 09:15 52 L 16 108/57 100 12/10/24 08:35 54 L 16 100/62 98 12/10/24 08:30 57 L 16 117/57 98 12/10/24 08:25 54 L 17 99/57 99 12/10/24 07:10 97.1 F L 55 L 18 117/72 97 FiO2 12/10/24 14:30 12/10/24 14:15 12/10/24 14:00 12/10/24 13:45 12/10/24 13:30 12/10/24 13:15 12/10/24 13:00 12/10/24 12:45 12/10/24 12:30 12/10/24 12:25 12/10/24 09:15 12/10/24 08:35 37 12/10/24 08:30 36 12/10/24 08:25 12/10/24 07:10 Intake and Output 12/10/24 12/10/24 12/10/24 06:59 14:59 22:59 Intake Total 1350 Output Total 20 Balance 1330 Intake: IV 1350 Output: Estimated Blood Loss 20 Other: Weight 62.5 kg
[2024-12-10] MEDS: DEXTROSE 5%-0.45% NACL 1,000 ML IV SCH (16:39)
[2024-12-10] MEDS: Acetaminophen-Codeine 300-30mg TAB PO PRN (17:07)
[2024-12-10] MEDS: HEPARIN SODIUM,PORCINE 5,000 UNIT/ML 1 ML VIAL SQ SCH (17:07)
[2024-12-11 01:28] VITALS: RESP 16
[2024-12-11] MEDS: HYDROmorphone 1 MG/ML 1 ML SYRINGE IVP PRN (05:32)
[2024-12-11 08:15] VITALS: BP 91/50; PULSE 68; TEMP 98.2
[2024-12-11] MEDS: PANTOPRAZOLE 40 MG TABLET PO SCH (08:31)
--- NOTE | 2024-12-11 09:33 | P.PN ---
Subjective Progress Note Date: 12/11/24 Principal diagnosis: Postop day 1 left mastectomy with sentinel node biopsy Lauren is postop day #1 left mastectomy with sentinel node biopsy. Postoperatively she is doing well. SOSA output is serous and minimal. A CBC is pending. She is tolerating diet without difficulty. She did receive IV pain medication earlier today and noted that her systolic blood pressure decreased with this. At this time she is doing well. Objective - Vital Signs Vital signs: Vital Signs Temp 98.2 F 12/11/24 08:00 Pulse 68 12/11/24 08:00 Resp 16 12/11/24 08:00 BP 91/50 12/11/24 08:00 Pulse Ox 96 12/11/24 08:00 FiO2 37 12/10/24 08:35 Intake & Output 12/10/24 12/11/24 12/11/24 18:59 06:59 18:59 Intake Total 2970 Output Total 25 80 Balance 2945 -80 Weight 62.5 kg Intake: IV 1350 Oral 1620 Output: Drainage 5 80 Left Breast 5 80 Estimated Blood Loss 20 Other: Voiding Method Toilet # Voids 1 1 - Constitutional General appearance: Present: cooperative - EENT Eyes: Present: EOMI ENT: Present: hearing grossly normal - Neck Neck: Present: normal ROM - Respiratory Respiratory: bilateral: CTA - Cardiovascular Rhythm: regular Heart sounds: normal: S1, S2 - Integumentary Integumentary Comment(s): Incision left chest wall clean and dry no evidence of seroma or hematoma - Musculoskeletal Musculoskeletal: Present: gait normal - Psychiatric Psychiatric: Present: A&O x's 3, appropriate affect, intact judgment & insight Assessment and Plan Assessment: Impression: Patient doing well postop day #1 left mastectomy Plan: Await CBC results Probable discharge home later today Follow-up with Dr. Watkins in 1 week Teach patient drain care
--- NOTE | 2024-12-11 09:35 | P.DS ---
Providers Date of admission: 12-10-24 Expected date of discharge: 12/11/24 Attending physician: Nichole Steinberg Consults: 12/10/24 11:36 Consult Physician Routine Consulting Provider: Jose Mojica Consult Reason/Comments: medical managment Do you want consulting provider notified?: Yes Primary care physician: [facility] Course: Lauren underwent a left mastectomy with sentinel node biopsy on 12-10-2024. Postoperatively she is doing well. SOSA output is minimal and serous in nature. She is tolerating diet without difficulty. Plan - Discharge Summary Discharge Rx Participant: Yes New Discharge Prescriptions: New oxyCODONE HCL [OxyIR] 5 mg PO Q6H PRN 3 Days #10 tab PRN Reason: pain No Action Albuterol Inhaler [Ventolin Hfa Inhaler] 2 puff INHALATION QID PRN PRN Reason: Shortness Of Breath Ondansetron [Zofran] 4 mg PO DIRECTED PRN PRN Reason: Nausea Cholestyramine [Cholestyramine Light] 4 gm PO DIRECTED PRN PRN Reason: loose stools Anastrozole 1 mg PO DAILY Abemaciclib [Verzenio] 100 mg PO BID Omeprazole 20 mg PO DAILY Discharge Medication List Albuterol Inhaler [Ventolin Hfa Inhaler] 2 puff INHALATION QID PRN 10/09/24 [History] Abemaciclib [Verzenio] 100 mg PO BID 12/05/24 [History] Anastrozole 1 mg PO DAILY 12/05/24 [History] Cholestyramine [Cholestyramine Light] 4 gm PO DIRECTED PRN 12/05/24 [History] Omeprazole 20 mg PO DAILY 12/05/24 [History] Ondansetron [Zofran] 4 mg PO DIRECTED PRN 12/05/24 [History] oxyCODONE HCL [OxyIR] 5 mg PO Q6H PRN 3 Days #10 tab 12/10/24 [Rx] Follow up Appointment(s)/Referral(s): Nichole Steinberg MD [STAFF PHYSICIAN] - 12/20/24 8:20 am Activity/Diet/Wound Care/Special Instructions: Do not drive if taking narcotic pain medicine May shower after 48 hours from surgery Teach drain care Discharge Disposition: HOME SELF-CARE
--- NOTE | 2024-12-11 09:56 | P.PN ---
Subjective Progress Note Date: 12/11/24 Patient is a 64-year-old female with past medical history of GERD, esophageal strictures with history of EGD dilation, left breast invasive lobular carcinoma T3 N0 M0 ER/HI positive H ER 2 negative who presented for elective left mastectomy with sentinel node mapping and biopsy that was performed on 12/10/2024. EBL 20 cc. On arrival patient was afebrile, heart rate in 50s, BP 117/72, satting well on room air. No lab work available for review. [facility] [place] physicians consulted for medical management. Patient was seen examined at bedside, not in acute distress, accompanied by her . States that her pain is 3 out of 10 right now, denies any history of heart disease, lung disease, kidney issues, diabetes, thyroid disease. She does not have any shortness of breath, abdominal pain, lower extremity swelling, change in bowel habits 12/11: Seen and examined at bedside, sitting in the recliner, no acute events overnight, patient feels well, no active complaints. She is afebrile with heart rate in 60s, blood pressure 103/65, satting well on room air. Patient is getting discharged, clear from IM standpoint. Pertinent positives and negatives as discussed in HPI, a complete review of systems was performed and all other systems are negative. Patient seen and examined at bedside. Vital signs reviewed General: nontoxic, no distress, appears at stated age Derm: warm, dry, postop bandage Head: atraumatic, normocephalic, symmetric Eyes: EOMI, no lid lag, anicteric sclera, pupils equal round reactive to light ENT: Nose and ears atraumatic Neck: No thyromegaly, supple Mouth: no lip lesion, mucus membranes moist Cardiovascular: S1S2 reg, no murmur, no edema Lungs: clear to auscultation bilateral, no rhonchi, no rales, no wheeze, no accessory muscle use Abdominal: soft, nontender to palpation, no guarding, no appreciable organomegaly Ext: no gross muscle atrophy, muscle strength muscle strength 5 out of 5 in all 4 extremities, no contractures Neuro: CN II-XII grossly intact Psych: Alert, oriented, appropriate affect Assessment/Plan: GERD History of esophageal stricture status post dilation -Continue PPI with oMeprazole 20 daily - Clear for discharge from IM standpoint left breast invasive lobular carcinoma T3 N0 M0 ER/HI positive H ER 2 negative s/p left mastectomy with sentinel node mapping and biopsy that was performed on 12/10/2024 - Your postop management, VTE prophylaxis pain regimen, bowel regimen Objective - Vital Signs Vital signs: Vital Signs Temp 98.2 F 12/11/24 08:00 Pulse 68 12/11/24 08:00 Resp 16 12/11/24 08:00 BP 91/50 12/11/24 08:00 Pulse Ox 96 12/11/24 08:00 FiO2 37 12/10/24 08:35 Intake & Output 12/10/24 12/11/24 12/11/24 18:59 06:59 18:59 Intake Total 2970 Output Total 25 80 Balance 2945 -80 Weight 62.5 kg Intake: IV 1350 Oral 1620 Output: Drainage 5 80 Left Breast 5 80 Estimated Blood Loss 20 Other: Voiding Method Toilet # Voids 1 1
[2024-12-11 10:20] LABS: Basophils # (A) 0.02 X 10*3/uL (0.00-0.10); Basophils % (A) 0.3 %; Eosinophils # (A) 0 X 10*3/uL (0.04-0.35); Eosinophils % (A) 0 %; HCT 33.6 % (37.2-46.3); HGB 11.2 g/dL (12.0-15.0); Immature Grans, Automated 0.40 %; Lymphocytes # (A) 2.41 X 10*3/uL (0.90-5.00); Lymphocytes % (A) 31.4 %; MCH 29.9 pg (27.0-32.0); MCHC 33.3 g/dL (32.0-37.0); MCV 89.8 FL (80.0-97.0); Monocytes # (A) 0.56 X 10*3/uL (0.20-1.00); Monocytes % (A) 7.3 %; NRBC Per 100 WBC 0 X 10*3/uL (0.00-0.01); Neutrophils # (A) 4.65 X 10*3/uL (1.80-7.70); Neutrophils % (A) 60.6 %; Platelet Count 236 X 10*3/uL (140-440); RBC 3.74 X 10*6/uL (4.10-5.20); RDW 14.3 % (11.5-14.5); WBC 7.67 X 10*3/uL (4.50-10.00)
== END 2024-12-11 15:11 | disposition home or self-care (01) ==
LOC: OR 06:35 → 5NMEDONC 12:14 → OR 12-11 15:11
PROVIDERS: ATTEND Surgery
DX: D05.02 Lobular carcinoma in situ of left breast (principal); G89.18 Other acute postprocedural pain; K21.9 Gastro-esophageal reflux disease without esophagitis; Z17.0 Estrogen receptor positive status [ER+]; Z79.899 Other long term (current) drug therapy; Z85.3 Personal history of malignant neoplasm of breast
CPT/HCPCS: 38792; 64466; 85025; 88307; 88309; 88342